=== PATIENT | female | born 1935 | race Caucasian/White ===

== ENCOUNTER 2017-10-01 07:00 | Outpatient (CLI) | payer OTHER ==
[~2017-10-01 07:00] MED LIST: AVAPRO150 MG; TUSSIONEX PENNKI5 ML PO
== END 2017-10-01 07:28 | disposition home or self-care (01) ==
LOC: LAB 07:00
DX: E11.9 Type 2 diabetes mellitus without complications (principal); E78.1 Pure hyperglyceridemia; Z12.11 Encounter for screening for malignant neoplasm of colon; I10 Essential (primary) hypertension; Z12.73 Encounter for screening for malignant neoplasm of ovary; C79.60 Secondary malignant neoplasm of unspecified ovary; E03.8 Other specified hypothyroidism; E78.2 Mixed hyperlipidemia

== ENCOUNTER 2017-10-01 08:24 | Outpatient (CLI) | payer OTHER | END 2017-10-01 08:27 | disposition home or self-care (01) | LOC: MAMO-SONO 08:24 | DX: Z12.31 Encounter for screening mammogram for malignant neoplasm of breast (principal); Z87.898 Personal history of other specified conditions; Z12.73 Encounter for screening for malignant neoplasm of ovary ==

== ENCOUNTER → 2017-10-14 | Emergency (ER) | payer OTHER ==
[~2017-10-14] VITALS: Ht 154.9 cm; Wt 59.4 kg
[~2017-10-14] MED LIST changes: +METOPROLOL TAR100 MG
== END | disposition home or self-care (01) ==
LOC: ER 17:11
DX: I10 Essential (primary) hypertension (principal)